=== PATIENT | female | born 1965 | race Two or more races ===

== ENCOUNTER 2024-08-15 13:25 | Outpatient (AMB) | payer BC, SELFPAY ==
[2024-08-15 14:21] VITALS: BP 120/82; PULSE 66; RESP 18; TEMP 36.4; O2SAT 98; BMI 23.4
--- NOTE | 2024-08-15 14:21 | PD.ORTHCLVIS ---
Vital signs 08/15/24 14:21 Height 1.6 m Height Method Stated Weight 60.073 kg Weight Measurement Method Standing Scale BMI 23.4 BP 120/82 Blood Pressure Source Automatic Cuff Blood Pressure Location Right Upper Arm Position Sitting Respiration 18 Pulse 66 Pulse Source Monitor Temp 97.6 F Temp Source Temporal Artery Scan Pulse Oximetry (%) 98 Oxygen Delivery Method Room Air Med/Allergies Allergies & Medications Allergies No Known Allergies Allergy (Verified 08/15/24 14:22) Medication Reconciliation atorvastatin 40 mg tablet 40 mg PO QDAY 08/15/24 [History Confirmed 08/15/24] lisinopril 40 mg tablet 40 mg PO QDAY 08/15/24 [History Confirmed 08/15/24] melatonin 5 mg capsule mg PO 08/15/24 [History Confirmed 08/15/24] omeprazole 40 mg capsule,delayed release 40 mg PO QDAY 08/15/24 [History Confirmed 08/15/24] Subjective Visit Visit for: new patient and knee (LEFT) Immunization / Flu Flu Vaccine in the Last 12 Months: Yes Flu Vaccine Exclusion Criteria: Already Received History of Present Illness Chief complaint: LEFT KNEE OSTEOARTHRITIS Chronic is a pleasant 58-year-old female who presents today for evaluation of her left knee. She has severe left knee arthritis. The left knee pain is worse than the right. She has tried multiple injections as well as anti-inflammatories in the past. Pain Pain level (0-10): 7 Pain duration: CONSTANT Pain location: inside (medial) and posterior Pain quality: sharp and aching Pain timing: increases with activity Associated signs & symptoms: weakness Ambulatory data Ambulatory device: none Treatments Improvement with previous injections: No Improvement with PT: No Improvement with NSAIDS: no Review of Systems Review of Systems: All systems negative unless otherwise noted in HPI. Exam Exam Patient is in no acute distress and is cooperative with the examination today. Breathing is nonlabored. In no respiratory distress. Bilateral extremities were evaluated and demonstrates sensation intact to light touch. Palpable pedal pulses are present. No significant edema is present. Bilateral hips were examined. The patient has no pain with log roll of the hips. Internal rotation to 30 degrees and external rotation to 30 degrees is painless. Negative FADIR. The left knee was examined. The left knee is in valgus alignment. Range of motion from [0-115] degrees. Knee is stable to varus and valgus as well as AP translation with <5mm. Patient has a [negative] McMurrays. There is [no] pain with patellofemoral compression and [no] crepitus noted. The knee is [tender] to palpation laterally. The right knee was also examined. The right knee is in valgus alignment. Range of motion from [0-120] degrees. Knee is stable to varus and valgus as well as AP translation with <5mm. Patient has a [negative] McMurrays. There is [no] pain with patellofemoral compression and [no] crepitus noted. The knee is [tender] to palpation laterally. Patient has nonweightbearing x-rays. This demonstrates severe degeneration. Assessment and Plan Problem List (1) Degenerative arthritis of knee, bilateral: Status: Acute Plan: Patient is a 58-year-old female with bilateral knee pain and likely bilateral knee arthritis worse on the left. We will obtain new x-rays. We will likely do injections and discuss different treatment options at the next visit. She has had good response with injections Office Procedures GNS Level of Care Nursing/Assessment Patient Status: Initial/New Patient Nursing Assessment/Reassesment: Medication Reconciliation, Update PMH in EMR and Vital Signs Coordination of Care: Complex Care and Chronic Disease 1-5, Education Complex Pt/Fam, Consent,records obtained, informed consent, 1 Ins Authorization, Lab and Imaging orders, Results/Orders obtained and Staff clarify orders Special Needs: Language special needs New Patient Charge New Patient Point Assignment: 1124 New Patient Point Charge: FUND DEVELOPMENT MANAGER Level 4 ([id number]) Past Medical History Past Medical History Have you ever been diagnosed with any of the following: Respiratory Problems Smoking: No Smoking Exposure: No
== END 2024-08-15 14:58 | disposition home or self-care (01) ==
PROVIDERS: PCP Physician Assistant Medical; Referring Provider Physician Assistant Medical; Supervising Provider Orthopaedic Surgery Adult Reconstructive Orthopaedic Surgery; Visit Provider Orthopaedic Surgery Adult Reconstructive Orthopaedic Surgery
DX: M17.0 Bilateral primary osteoarthritis of knee (principal); M25.562 Pain in left knee; M25.561 Pain in right knee
CPT/HCPCS: 99204; G0463

== ENCOUNTER 2024-09-08 15:41 | Outpatient (AMB) | payer BC, SELFPAY ==
--- NOTE | 2024-09-08 15:41 | PD.ORTHCLVIS ---
Med/Allergies Allergies & Medications Allergies No Known Allergies Allergy (Verified 08/15/24 14:22) Subjective Visit Visit for: new patient and knee (LEFT) Immunization / Flu Flu Vaccine in the Last 12 Months: Yes Flu Vaccine Exclusion Criteria: Already Received History of Present Illness Chief complaint: LEFT KNEE OSTEOARTHRITIS Chronic is a pleasant 58-year-old female who presents today for evaluation of her left knee. She has severe left knee arthritis. The left knee pain is worse than the right. She has tried multiple injections as well as anti-inflammatories in the past. Pain Pain level (0-10): 7 Pain duration: CONSTANT Pain location: inside (medial) and posterior Pain quality: sharp and aching Pain timing: increases with activity Associated signs & symptoms: weakness Ambulatory data Ambulatory device: none Treatments Improvement with previous injections: No Improvement with PT: No Improvement with NSAIDS: no Review of Systems Review of Systems: All systems negative unless otherwise noted in HPI. Exam Exam X-rays demonstrate complete joint space obliteration medially especially on the tunnel view. She has significant osteophytes present Assessment and Plan Problem List (1) Degenerative arthritis of knee, bilateral: Status: Acute Plan: Patient is a 58-year-old female with bilateral knee pain and likely bilateral knee arthritis worse on the left. We thus discussed total knee replacement and is monitored. She reports the last cortisone injections have not worked for very long. We thus discussed total knee replacement as a reasonable option. The nature and purpose of the total knee replacement, alternative method(s) of treatment, the material risks involved, and the possibility of complications were fully explained to the patient. The patient does NOT have any of the following contraindications to TKA: - Active infection of the knee joint, OR - Active systemic bacteremia, OR - Active skin infection or open wound at surgical site, OR - Neuropathic arthritis, OR - Severe, rapidly progressive neurological disease, OR - Severe medical condition that makes risks of surgery outweigh the potential benefit The patient was told the most common risks and complications associated with a total knee replacement include, but are not limited to: blood clots in the leg, fatal pulmonary embolism, dislocation of the prosthesis, intraoperative and postoperative fractures of the femur or tibia, infection, failure of the prosthesis or grafting materials, complications from anesthesia, reactions to blood transfusions, postoperative leg length inequality, instability of the knee replacement, nerve damage or injury, vascular injury, delayed wound healing, infection, other injury or even . In addition, there are risks associated with anesthesia given during this operation. Also, the patient was told that after undergoing a total knee replacement there may still be persistent pain or disability. The patient was informed that the success of this operation in part depends upon the mechanical devices which are going to be implanted and that these devices can fail or malfunction, and may need to be repaired or replaced and there are no guarantees as to the longevity of this device or its parts and that it or its parts could fail prematurely. The patient was also notified that during the course of surgery, there may be a need to use bone graft from donors, and that any bone graft used will be carefully screened for communicable diseases, including AIDS, hepatitis, Nmoi-Creutzfeldt, or other diseases, but despite the screening procedures, there is a small chance that they could contract one of these diseases. Finally, the patient was asked to follow completely and fully with all advice and recommended treatments, and that recovery and ultimate outcome are affected by their compliance with recommended treatment. We discussed the risks, benefits and treatment alternatives, and the patient is interested in proceeding with surgery. We will try to set this up as expeditiously as possible. Past Medical History Past Medical History Have you ever been diagnosed with any of the following: Respiratory Problems Smoking: No Smoking Exposure: No
--- NOTE | 2024-09-08 15:45 | ORTHONT_ITS ---
Med/Allergies Allergies & Medications Allergies No Known Allergies Allergy (Verified 09/08/24 15:47) Medication Reconciliation atorvastatin 40 mg tablet 40 mg PO QDAY 08/15/24 [History Confirmed 09/08/24] lisinopril 40 mg tablet 40 mg PO QDAY 08/15/24 [History Confirmed 09/08/24] melatonin 5 mg capsule mg PO 08/15/24 [History Confirmed 09/08/24] omeprazole 40 mg capsule,delayed release 40 mg PO QDAY 08/15/24 [History Confirmed 09/08/24] meloxicam 7.5 mg tablet 7.5 mg PO QDAY #45 tabs 09/08/24 [Rx Confirmed 09/08/24] Subjective Visit Visit for: follow up visit and knee (LEFT) Immunization / Flu Flu Vaccine in the Last 12 Months: No Flu Vaccine Exclusion Criteria: No Exclusion Criteria History of Present Illness Chief complaint: XRAY RESULTS Chronic is a pleasant 58-year-old female who presents today for evaluation of her left knee. She has severe left knee arthritis. The left knee pain is worse than the right. She has tried multiple injections as well as anti- inflammatories in the past. Pain Pain level (0-10): 8 Pain duration: CONSTANT Pain location: inside (medial) Pain quality: sharp, dull and aching Pain timing: night and increases with activity Associated signs & symptoms: weakness and stiffness Ambulatory data Ambulatory device: none Treatments Improvement with previous injections: No Improvement with PT: No Improvement with NSAIDS: no Review of Systems Review of Systems: All systems negative unless otherwise noted in HPI. Assessment and Plan Problem List (1) Degenerative arthritis of knee, bilateral: Status: Acute Plan: Patient is a 58-year-old female with bilateral knee pain and likely bilateral knee arthritis worse on the left. X-rays demonstrate severe degenerative a rthritis. We discussed that we should try conservative treatment including injections and anti-inflammatories first. We will have him come in for injections Office Procedures GNS Level of Care Nursing/Assessment Patient Status: Established Patient Nursing Assessment/Reassesment: Medication Reconciliation, Update PMH in EMR and Vital Signs Coordination of Care: Complex Care and Chronic Disease 1-5, Education Complex Pt/Fam, Consent,records obtained, informed consent, 1 Ins Authorization, Lab and Imaging orders, Results/Orders obtained and Staff clarify orders Special Needs: Language special needs Established Patient Charge Established Patient Point Assignment: 125 Telehealth Telemed Phone/Video with patient at home & Dr,PA,CHEMICAL EQUIPMENT SALES ENGINEER: Yes
== END 2024-09-08 15:48 | disposition home or self-care (01) ==
LOC: HODSRG 15:41
PROVIDERS: PCP Physician Assistant Medical; Referring Provider Physician Assistant Medical; Supervising Provider Orthopaedic Surgery Adult Reconstructive Orthopaedic Surgery; Visit Provider Orthopaedic Surgery Adult Reconstructive Orthopaedic Surgery
DX: M17.0 Bilateral primary osteoarthritis of knee (principal); M25.562 Pain in left knee; M25.561 Pain in right knee
CPT/HCPCS: 99212; G0463